=== PATIENT | female | born 1950 | race Caucasian/White ===

== ENCOUNTER 2021-09-27 07:50 | Day surgery (SDC) | payer MEDICARE, SELFPAY ==
--- NOTE | 2021-09-27 06:24 | W.ANESPRE ---
General Info Date of Service Date Performed: 09/27/21 Height: 5 ft 2 in Weight: 81.647 kg Body Mass Index (BMI): 32.9 Surgical Procedure: Operation Date: 09/27/21 09:55 Proposed Procedure Side Surgeon p Cataract Extraction with IOL Implant Right Cornelio Adkins MD Meds Allergies and Home Medications Allergies Allergy/AdvReac Type Severity Reaction Status Date / Time No Known Allergies Allergy Unverified 09/27/21 08:03 Home Medication Medication Instructions Recorded Unknown [No Known Home Meds] 09/26/21 [facility] Medical History Medical History Cataracts, bilateral Fatigue History of hypokalemia Tobacco Smoking/Tobacco Use Status: Former Tobacco Use Alcohol Alcohol Intake: current Alcohol intake frequency: a few times a week Substance Use Substance use: Never Substance use type: does not use Vital Signs and Lab Results Vital Signs Most Recent Vital Signs in EMR: Temp Pulse Resp BP Pulse Ox 37.1 C 81 16 152/104 H 98 09/27/21 08:00 09/27/21 08:00 09/27/21 08:00 09/27/21 08:00 09/27/21 08:00 Lab Results Blood Type / Crossmatch: No Data to Display Complete Blood Count: No Data to Display Complete Metabolic Panel: No Data to Display Liver Function Panel: No Data to Display Coagulation Panel: No Data to Display Cardiac Panel: No Data to Display Arterial Blood Gas: No Data to Display Venous Blood Gas: No Data to Display Pancreas Panel: No Data to Display Thyroid Panel: No Data to Display Infectious Disease: No Data to Display Blood Cultures: No Data to Display Toxicology Panel: No Data to Display Anesthesia Assessment and Plan Anesthesia History Personal History: Unknown Anesthesia History Family History: No Family History of Anesthesia Complications Exercise Tolerance Exercise Tolerance: Metabolic Equivalents>4 Cardiac & Pulmonary Exam Cardiac Exam: Normal S1/S2 Heart Sounds Pulmonary Exam: Clear Bilateral Breath Sounds Implantable Cardiac Device Does patient have a Pacemaker or an ICD?: No Airway Exam Known Difficult Airway: No Mallampati Class: 2 Mouth Opening: Normal (> 3cm) Thyromental Distance: Greater than 3 cm Neck Range of Motion: Full ROM Neck Circumference: Normal Teeth Condition: Generalized Poor Dentition and Removable Dentures/Plates Upper ASA Classification ASA Score: ASA 2 Emergency Case?: No NPO Status NPO Status: NPO Clears >2 hours, Solids >8 hours Anesthesia Plan Resuscitation Status: Full Code Anesthesia Technique: MAC Anesthesia Airway Planned: Natural Airway Monitors Used: Standard Monitors Preoperative Comments:: 71 yo female for cataract removal. Sig PMHx: hypokalemia, former smoker, occ EtOH.
[2021-09-27 08:00] VITALS: BP 152/104; PULSE 81; RESP 16; TEMP 37.1; O2SAT 98
[2021-09-27] MEDS: Tropicam./Phenyleph. (1/2.5%) 5 ML BTL ×3 (08:08→08:19)
[2021-09-27 08:27] VITALS: BMI 32.9
[2021-09-27] MEDS: Povidone-Iodine Ophth 30 ML BTL (09:21)
[2021-09-27] MEDS: Lidocaine 2% Jelly 6 ML SYR (09:22)
[2021-09-27] MEDS: Tetracaine 0.5% 4 ML BTL (09:22)
[2021-09-27] MEDS: Balanced Salt Soln.-PLUS 500 ML BAG (09:27)
[2021-09-27] MEDS: Duovisc Viscoelastic System EACH 1 EACH (09:27)
--- NOTE | 2021-09-27 09:48 | W.PM.DSUDISC ---
Discharge Plan Disposition Patient Disposition: HOME Condition: Good Discharge Details Attending Provider: Cornelio Adkins Primary Care Provider: None,None Home Meds and New Rx's Prescriptions: No Action No Known Home Meds Discharge Instructions Stand Alone Forms: Post-op Topical Cataract, Eugenia Waters (DSU) Discharge Orders Discharge Orders: Discharge Order (Routine); Ordered 09/27/21 Ordered By: Cornelio Adkins DS: Diagnosis Discharge Diagnosis (1) Cortical cataract of right eye: Status: Resolved (2) Nuclear sclerotic cataract of right eye: Status: Resolved (3) Posterior subcapsular age-related cataract, right eye: Status: Resolved
--- NOTE | 2021-09-27 09:50 | ROE_ITS ---
Date of service: 09/27/21 Time of Service: 08:50 Operative Note Operative Note DATE OF PROCEDURE: 09/27/21 PRE-OP DIAGNOSIS: Nuclear/cortical/posterior subcapsular cataract, right POST-OP DIAGNOSIS: same PROCEDURE: Cataract extraction using phacoemulsification with intraocular lens implant, right eye SURGEON: Cornelio Adkins ANESTHESIA TYPE: Local By Surgeon and MAC Refer to Anesthesia Record ESTIMATED BLOOD LOSS: 0 PATHOLOGY: none sent COMPLICATIONS: None Patient was transported to: same day Patient's condition: stable Implants: Juan Alberto [employer] Juan Alberto/AVEL Tecnis [id number] Indications: Progressive visual loss due to cataract, right eye Procedure Description: CATARACT SURGERY OPERATIVE REPORT PREOPERATIVE DIAGNOSIS: 1. Nuclear/cortical/posterior subcapsular cataract, right eye POSTOPERATIVE DIAGNOSIS: Same OPERATION: 1. Cataract extraction using phacoemulsification with posterior chamber intraocular lens implant, right eye. IOL: IOL Wash Worker/Model: Juan Alberto & Juan Alberto / AVEL Tecnis [id number] IOL Power: + 20.50 diopters IOL Serial Number: [id number] Optic Diameter: 6.0mm Haptic/Overall Diameter: 13.0mm PHACO INFO: Yovanny BrightBytesurion Vision System with OZil and Active Fluidics Cumulative Dispersed Energy (CDE): 6.30 seconds SURGEON: Cornelio Adkins MD, [place] ANESTHESIA: Monitored Anesthesia Care (MAC), with local sub-tenon's anesthetic infiltration COMPLICATIONS: None SPECIMENS: None INDICATIONS FOR PROCEDURE: The patient is a 71-year-old lady with history of diminished visual acuity in her right eye secondary to the development of nuclear/cortical/posterior subcapsular cataract. She is significantly symptomatic that she desires cataract surgery and attempt to improve and maximize her vision. The option of cataract surgery was offered to the patient and she wished to proceed PROCEDURE: The correct surgical eye was identified and marked as the right eye and the pupil was dilated in the preoperative area using mydriatics and cycloplegics. The dilated pupil size was seven-point mm. She elected to proceed without oral sedation the patient was brought to the operating room where cardiopulmonary monitoring was instituted and surgical time-out was performed, confirming the correct operative eye and IOL power. Topical anesthesia was administered and ophthalmic povidone-iodine 5% was instilled into the conjunctival fornices. Lidocaine gel was applied to the cornea and the pippa-ocular area was prepped with Betadine 10% solution and draped in the usual sterile fashion for intraocular surgery, including an aperture drape. A Tegaderm transparent film dressing was cut in half and used to cover the lashes and lid margins. Care was taken to sequester the lashes and lid margins under the Tegaderm dressing. A lid speculum was placed between the lids of the operative eye and the Yovanny LuxOR Revalia operating microscope was maneuvered into position. Keegan scissors were then used to make a conjunctival buttonhole approximately 6mm posterior to the limbus in the inferonasal quadrant. Blunt dissection was carried out to expose bare sclera, and a blunt-tipped sub-tenon?s anesthesia cannula was introduced and passed posteriorly along the globe where non- preserved plain lidocaine was injected into posterior sub-Tenon?s space. A sideport knife was used to make a paracentesis port inferotemporally. Intraocular phenylephrine/lidocaine was injected into the anterior chamber. The anterior chamber was filled with viscoelastic. A 2.4mm keratome knife was used to construct a 2-plane near-clear corneal tunnel extending 2.0mm into clear cornea superiortemporally. A flap was raised on the anterior capsule and capsulorhexis forceps were used to complete a continuous curvilinear capsulorhexis of 5.0 mm. Balanced salt solution was then used to perform cortical cleaving hydrodissec tion and nuclear hydrodelineation until the lens could be freely rotated within the capsular bag. The lens nucleus was then disassembled and removed within the capsular bag and iris plane using phacoemulsification. Residual cortical material was removed using the I/A handpiece. The posterior capsule was carefully polished to remove as much residual lens epithelial cells as safely possible. The capsular bag was then inflated and the anterior chamber deepened with viscoelastic. The lens implant described above was inserted into the capsular bag using the AVEL [place] Injector. A Kuglen hook was used to dial the IOL into position. Residual viscoelastic was then removed first from posterior to the IOL, then from the anterior chamber using the I/A handpiece. The lens implant was noted to center nicely within the capsular bag. The incisions were stromally hydrated, and the anterior chamber was reformed using BSS. Then 0.5cc of moxifloxacin 1.0mg/ml were injected into the capsular bag and anterior chamber. The incisions were checked with a Weck spear and found to be secure. Several drops of ophthalmic povidone-iodine 5% were then applied to the eye followed by two drops of Imprimis combination prednisolone/moxifloxacin/nepafenac solution. The drapes were removed and a clear plastic protective eye shield was placed over the eye. The patient was then returned to Same Day Surgery in stable condition.
[2021-09-27 09:51] VITALS: BP 148/79; PULSE 88; RESP 16; TEMP 36.6; O2SAT 97
--- NOTE | 2021-09-27 09:56 | W.ANESPOSTOP ---
Postoperative Evaluation Date, Time and Location Date Performed: 09/27/21 Time Performed: 08:56 Patient Location: Day Surgery Unit Vital Signs Most Recent Imported Vital Signs: Most Recent Vital Signs Temp Pulse Resp BP Pulse Ox 36.6 C 88 16 148/79 H 97 09/27/21 09:51 09/27/21 09:51 09/27/21 09:51 09/27/21 09:51 09/27/21 09:51 Pain Score Most Recent Pain Score: Most Recent Pain Score Pain Level 0 09/27/21 09:51 Assessment Mental Status: Awake (Alert & Oriented to Patient Baseline) Airway and Respiratory Function: Patent airway with normal (patient baseline) respiratory exam Cardiovascular Function: Hemodynamically Stable Hydration Status: Adequately Hydrated Nausea & Vomiting: No Nausea or Vomiting Pain: Pt. Denies Any Pain Peripheral Nerve Block: Patient did not receive a nerve block
== END 2021-09-27 10:03 | disposition home or self-care (01) ==
PROVIDERS: Visit Provider Ophthalmology
PROC: (CPT 66984; principal; 2021-09-27 09:45)
DX: H25.041 Posterior subcapsular polar age-related cataract, right eye (principal)
CPT/HCPCS: 66984; 00142; V2632

== ENCOUNTER 2021-10-11 06:21 | Day surgery (SDC) | payer MEDICARE, SELFPAY ==
--- OUTSIDE RECORDS SUMMARY | 2021-10-11 06:23 | XMS_ITS ---
:1950 Author Care Team Providers Name Role Phone KRISTEN HAN Primary Care Provider [phone] Allergies Code Code System Name Reaction Severity Status Onset NKDA ? Medications Name Status Start Date Stop Date ? ? cephalexin 500 mg capsule Completed ? 2021 Take 1 capsule 4 times a day by oral route for 7 days. folic acid 1 mg tablet Active ? Not avail able TAKE ONE TABLET BY MOUTH EVERY DAY FOR 90 DAYS hydrocodone 5 mg-acetaminophen 325 mg tablet Completed ? 09/12/2021 Take 1 tablet every 6 hours by oral route as needed for 3 days. Silvadene 1 % topical cream Completed ? 08/17 Apply 1 application twice a day by topical route as directed fo r 7 days. Vitamin B-12 1,000 mcg tablet Active ? No t available TAKE ONE TABLET BY MOUTH EVERY DAY FOR 90 DAYS Problems Name Status Onset Date Source ? Hypokalemia Active 09/14/2021 ? Fatigue Active 09/14/2021 ? Elevated Liver Enzymes Level Active 09/19/2021 ? Macrocytosis Active 09/23/2021 ? Procedures None recorded. Results Lab Results Date Name Specimen Result Interpretation Description Value Range Status Address ? 09/19/2021 Lipase, Serum S ? Lip 106 U/L 73-393 Final North or Plasma U/L [facility] L ab (Internal) : [address] 09/19/2021 TSH, Serum or S ? Tsh 1.48 uIU/mL 0.36-3.7 4 Final [place] Plasma uIU/mL [facility] L ab (Internal) : [address] 09/19/2021 Folate, Serum S Low Folate 2.30 NG/mL 8.60-58. 9 Final [place] 0 NG/mL [facility] L ab (Internal) : [address] 09/19/2021 Vitamin B12, S ? Vit B12 406.0 pg/mL 193.0-9 86 Final [place] Serum .0 pg/mL [facility] L ab (Internal) : [address] 09/19/2021 Hepatitis S ? Hepatitis negative negative Fi nal [place] Panel (A+B+C), a IgM Ab, S [facility] Acute, Serum Hosp ital Lab (Internal) : [address] ? ? S ? Hbs negative negative Final [place] Antigen, S [facility] L ab (Internal) : [address] ? ? S ? Hbc IgM negative negative Final Nort h Ab, S [facility] L ab (Internal) : [address] ? ? S ? HCV Ab, S negative negative Final No rth [facility] L [facility] (Internal) : [address] 09/19/2021 Venipuncture ? Location Right ? ? P_nc Primary Antecubital Care [place]: [address], [place] ? ? ? Needle 21g ? ? P_nc Prim mayelin Vacutainer Care [place]: [address], [place] ? ? ? Number of 1 ? ? P_nc P rimary Attempts Care [place]: [address], [place] ? ? ? Successful Yes ? ? P_nc Primary Care [place]: [address], [place] ? ? ? Dressing Pressure ? ? P_nc Primary Band-aid Care Applied [place]: [address], [place] ? ? ? Initials hj ? ? P_nc Pr imary Care [place]: [address], [place] 09/12/2021 CBC W/ Auto BLD ? Wbc 5.1 10*3/uL 5.0-10.0 F inal [place] Diff 10*3/uL [facility] L [facility] (Internal) : [address] ? ? BLD Low Rbc 3.76 10*6/uL 4.10-5.30 Final N orth 10*6/uL [facility] L [facility] (Internal) : [address] ? ? BLD ? Hgb 15.2 g/dL 12.0-16.0 Final Nort h g/dL [facility] L [facility] (Internal) : [address], [place] ? ? BLD ? Hct 43.9 % 37.0-47.0 Final [facility] Hospital L ab (Internal) : [address] ? ? BLD High Mcv 116.8 fL 80.0-96.0 Final [facility] Hospital L ab (Internal) : [address] ? ? BLD High Mch 40.4 pg 26.0-32.0 Final [facility] L ab (Internal) : [address] ? ? BLD ? Mchc 34.6 g/dL 31.0-35.0 [facility] L ab (Internal) : [address] ? ? BLD ? Rdw 13.3 % 11.5-14.[address] [facility] L ab (Internal) : [address] ? ? BLD ? Plt 293 10*3/uL 130-450 Final Nort h 10*3/uL [facility] L ab (Internal) : [address] ? ? BLD ? Anc 2.57 10*3/uL ? Final Nort [facility] L ab (Internal) : [address] ? ? BLD ? Nlr 1.50 0.00-3.20 Final [facility] L ab (Internal) : [address] ? ? BLD ? Neutro 50.2 % 40.0-75.[address] [facility] L ab (Internal) : [address] ? ? BLD ? Lymph 33.5 % 20.0-50.[address] [facility] L ab (Internal) : [address] ? ? BLD High [place] 10.6 % 2.0-10.0 Final [facility] Hospital L ab (Internal) : [address] ? ? BLD ? Eos 4.1 % 1.0-6.0 % Final [facility] L ab (Internal) : [address] ? ? BLD High Baso 1.4 % 0.0-1.0 % Final [facility] L ab (Internal) : [address] ? ? BLD ? Ig 0.2 % 0.0-0.9 % Final [facility] L ab (Internal) : [address] 09/12/2021 RBC BLD ? Macro large ? Final North Morphology, Count ry Blood Hospital L ab (Internal) : [address] 09/12/2021 Lipid Panel, S ? Chol 163 mg/dL 0-200 Maya l [place] Serum mg/dL [facility] L ab (Internal) : [address] ? ? S ? Trig 119 mg/dL 0-150 Final [place] mg/dL [facility] L ab (Internal) : [address] ? ? S ? Hdl 54 mg/dL 40-60 Final [place] mg/dL [facility] L ab (Internal) : [address] ? ? S ? Ldl 85 mg/dL 0-130 Final [place] mg/dL [facility] L ab (Internal) : [address] 09/12/2021 CMP, Serum or S ? g/r 98 mg/dL 74-106 Maya l [place] Plasma mg/dL [facility] L ab (Internal) : [address] ? ? S Low Bun 6 mg/dL 7-18 Final [place] mg/dL [facility] L ab (Internal) : [address] ? ? S ? Crea 0.6 mg/dL 0.6-1.0 Final [place] mg/dL [facility] L ab (Internal) : [address] ? ? S ? Ca 9.0 mg/dL 8.5-10.1 Final [place] mg/dL [facility] L ab (Internal) : [address] ? ? S ? Na 144 mmol/L 136-145 Final North mmol/L [facility] L ab (Internal) : [address] ? ? S Low K 3.3 mmol/L 3.5-5.1 Final [place] mmol/L [facility] L ab (Internal) : [address] ? ? S ? Cl 104 mmol/l 98-107 Final North mmol/l [facility] L ab (Internal) : [address] ? ? S ? Tco2 28.3 mmol/L 21.0-32.0 Final No rth mmol/L [facility] (Internal) : [address] ? ? S ? Tp 6.8 g/dL 6.4-8.2 Final North g/dL [facility] L ab (Internal) : [address] ? ? S Low Alb 2.9 g/dL 3.4-5.0 Final North g/dL [facility] L ab (Internal) : [address] ? ? S ? Tbil 0.80 mg/dL 0.20-1.00 Final Nor th mg/dL [facility] L ab (Internal) : [address] ? ? S ? Alp 77 U/L 46-116 Final North U/L [facility] L ab (Internal) : [address] ? ? S ? Alt (Sgpt) 46 U/L 14-59 U/L Final No rth [facility] L ab (Internal) : [address] ? ? S High Ast (Sgot) 96 U/L 15-37 U/L Final No rth [facility] L ab (Internal) : [address] 09/12/2021 ESR BLD ? Esr 0 mm/h 0-30 mm/h Final Nor th (Erythrocyte Coun try [facility] Lab Rate), Blood (Int ernal): [address] 09/12/2021 Venipuncture ? Location Right ? ? P_nc Primary Antecubital Care [place]: [address] [facility], [place] ? ? ? Needle 21g ? ? P_nc Prim mayelin Vacutainer Care [place]: [address] [facility], [place] ? ? ? Number of 1 ? ? P_nc P rimary Attempts Care [place]: [address] [facility], [place] ? ? ? Successful Yes ? ? P_nc Primary Care [place]: [address] [facility], [place] ? ? ? Dressing Pressure ? ? P_nc Primary Band-aid Care Applied [place]: [address] [facility], [place] ? ? ? Initials HJ ? ? P_nc Pr imary Care [place]: [address] [facility], [place] Past Encounters 09/19/2021 Elevated Liver Enzymes Level Kristen Han PA-C: [address] [place] [address], Ph. 09/12/2021 Pre-surgery Evaluation; Fatigue; Obesity Kristen Han PA-C: [address] [place] [address], Ph. Social History Tobacco Smoking Status Former Smoker Notes: quit 40 years ago Vaccine List Vaccine Type COVID-19, mRNA, LNP-S, PF, 100 mcg/0.5 m L dose (Moderna) 08/09/2020 09/06/2020 Td (adult), adsorbed 12/19/2019 Plan of Care Reminders Provider Appointments None recorded. ? ? Lab None recorded. ? ? Referral None recorded. ? ? Procedures None recorded. ? ? Surgeries None recorded. ? ? Imaging None recorded. ? ? Vitals 09/12/2021 09:00AM Preop Clearance 20 Weight Blood Pressure 81.76 kg 126/86 mm[Hg] 12/19/2019 08:20AM Follow Up 20 Height Weight BMI Blood Pressure 157.48 cm 80.29 kg 32.4 kg/m2 136/80 mm[Hg]
--- OUTSIDE RECORDS SUMMARY | 2021-10-11 06:23 | XMS_ITS | Encounter Summary ---
:1950 Author Care Team Providers Name Role Phone Kristen Han Primary Care Provider [phone] Reason for Visit lab follow-up Assessment and Plan 1. Elevated liver enzymes level ? venipuncture Discussion Note: None recorded.Patient educational handouts: No information available. Plan of Care Reminders Provider Appointments Any 15 on or around 12/24/2021 Nurse [facility] Lab Venipuncture 09/19/2021 P_nc Primary Ca re [place] Referral None recorded. ? ? Procedures None recorded. ? ? Surgeries None recorded. ? ? Imaging None recorded. ? ? Medications Name Start Date ? ? folic acid 1 mg tablet ? TAKE ONE TABLET BY MOUTH EVERY DAY FOR 90 DAYS Vitamin B-12 1,000 mcg tablet ? TAKE ONE TABLET BY MOUTH EVERY DAY FOR 90 DAYS Medications Administered None recorded. Vitals None recorded. Results Lab Results Date Name Specimen Result Interpretation Description Value Range Status Address ? 09/19/2021 Venipuncture ? Location Right ? ? P_nc Primary Care Antecubital [place]: [address], [place] ? ? ? Needle 21g Vacutainer ? ? P _nc Primary Care [place]: [address], [place] ? ? ? Number of 1 ? ? P_nc P rimary Care Attempts [place] [address], [place] ? ? ? Successful Yes ? ? P_nc Primary Care [place]: [address], [place] ? ? ? Dressing Pressure ? ? P_nc Primary Care Band-aid [place]: Applied [address], [place] ? ? ? Initials hj ? ? P_nc Pr imary Care [place]: [address], [place] Allergies Code Code System Name Reaction Severity Onset NKDA ? ? ? Problems Name Status Onset Date Source ? Hypokalemia Active 09/14/2021 ? Fatigue Active 09/14/2021 ? Elevated Liver Enzymes Level Active 09/19/2021 ? Macrocytosis Active 09/23/2021 ? Procedures None recorded. Vaccine List Vaccine Type COVID-19, mRNA, LNP-S, PF, 100 mcg/0.5 m L dose (Moderna) 08/09/2020 09/06/2020 Td (adult), adsorbed 12/19/2019 Social History Tobacco Smoking Status Former Smoker Notes: quit 40 years ago Do you have any pets? Y Do you have smoke and carbon monoxide Y detectors in your home? What is your code status? 0 Have you been to an area known to be N high risk for COVID-19? In the 14 days before symptom onset, N have you had close contact with a person who is under investigation for COVID-19 while that person was ill? What was the date of your most recent 09/12/2021 tobacco screening? Are you passively exposed to smoke? N What is your level of caffeine Occasional Notes: 1 cup of coffee and consumption? gingerale daily Have you recently traveled abroad? N Do you use any illicit or N recreational drugs? In the 14 days before symptom onset, N have you had close contact with a laboratory-confirmed COVID-19 while that case was ill? Functional Status Unknown. Past Encounters 09/19/2021 Elevated Liver Enzymes Level Kristen Han PA-C: [address] [place] [address], Ph. 09/12/2021 Pre-surgery Evaluation; Fatigue; Obesity Kristen Han PA-C: [address] [place] [address], Ph. History of Present Illness None recorded. Review of Systems None recorded. Physical Exam None recorded.
--- OUTSIDE RECORDS SUMMARY | 2021-10-11 06:23 | XMS_ITS | Encounter Summary ---
:1950 Author Care Team Providers Name Role Phone Kristen Han Primary Care Provider [phone] Reason for Visit pre-op check Assessment and Plan 1. Pre-surgery evaluation 09/12/2021 Recommend proceed with this l ow-risk surgery in this low-risk patient. 2. Fatigue 09/12/2021 Recurrent problem. We will lo ok at labs.: macrocytosis, low protein serum, mild hypokalemia. ? CBC w/ auto diff ? ESR (erythrocyte sedimentation rate), blood ? CMP, serum or plasma - another diagno sis: obesity: at risk for liver disease and hyperglycemia. ? venipuncture 3. Obesity 09/12/2021 Discussed her weight. We will look at her lipid panel. ? lipid panel, serum - nonfasting: had some gingerale. Discussion Note: None recorded.Patient educational handouts: No information available. Plan of Care Reminders Provider Appointments Any 15 on or around Nurse Pcbo 12/24/2021 Lab CBC W/ Auto Diff 09/12/2021 [facility] Lab (Internal) ? ESR (Erythrocyte 09/12/2021 [facility] Sedimentation Rate), [facility] (Internal) ? CMP, Serum or Plasma 09/12/2021 [facility] Lab (Internal) ? Lipid Panel, Serum 09/12/2021 [facility] Lab (Internal) ? Venipuncture 09/12/2021 P[facility]nc Primary Ca re [place] Referral None recorded. ? ? Procedures None recorded. ? ? Surgeries None recorded. ? ? Imaging None recorded. ? ? Medications Name Start Date ? ? folic acid 1 mg tablet ? TAKE ONE TABLET BY MOUTH EVERY DAY FOR 90 DAYS Vitamin B-12 1,000 mcg tablet ? TAKE ONE TABLET BY MOUTH EVERY DAY FOR 90 DAYS Medications Administered None recorded. Vitals Weight Blood Pressure 180 lbs 4 oz 126/86 mm[Hg] Results Lab Results Date Name Specimen Result Interpretation Description Value Range Status Address ? 09/12/2021 CBC W/ Auto BLD ? Wbc 5.1 10*3/uL 5.0-10.0 F [place] Diff 10*3/uL [facility] (Internal) : [address] ? ? BLD Low Rbc 3.76 10*6/uL 4.10-5.30 Final N orth 10*6/uL [facility] (Internal) : [address] ? ? BLD ? Hgb 15.2 g/dL 12.0-16.0 Final Nort h g/dL [facility] (Internal) : [address] ? ? BLD ? Hct 43.9 % 37.0-47.0 Final [facility] (Internal) : [address] ? ? BLD High Mcv 116.8 fL 80.0-96.0 Final [facility] (Internal) : [address] ? ? BLD High Mch 40.4 pg 26.0-32.0 Final [facility] (Internal) : [address] ? ? BLD ? Mchc 34.6 g/dL 31.0-35.0 Final Nort h g/dL [facility] (Internal) : [address] ? ? BLD ? Rdw 13.3 % 11.5-14.5 Final [facility] (Internal) : [address] ? ? BLD ? Plt 293 10*3/uL 130-450 Final Nort h 10*3/uL [facility] (Internal) : [address] ? ? BLD ? Anc 2.57 10*3/uL ? Final Nort h [facility] (Internal) : [address] ? ? BLD ? Nlr 1.50 0.00-3.20 Final [facility] (Internal) : [address] ? ? BLD ? Neutro 50.2 % 40.0-75.0 Final [facility] (Internal) : [address] ? ? BLD ? Lymph 33.5 % 20.0-50.0 Final [facility] ([facility] : [address] ? ? BLD High [place] 10.6 % 2.0-10.0 Final [facility] (Internal) : [address] ? ? BLD ? Eos 4.1 % 1.0-6.0 % Final [facility] (Internal) : [address] ? ? BLD High Baso 1.4 % 0.0-1.0 % Final [facility] (Internal) : [address] ? ? BLD ? Ig 0.2 % 0.0-0.9 % Final [facility] (Internal) : [address] 09/12/2021 Lipid Panel, S ? Chol 163 mg/dL 0-200 Maya [facility] [place] Serum mg/dL [facility] ([facility]) : [address] ? ? S ? Trig 119 mg/dL 0-150 Final [place] mg/dL [facility] (Internal) : [address] ? ? S ? Hdl 54 mg/dL 40-60 Final [place] mg/dL [facility] (Internal) : [address] ? ? S ? Ldl 85 mg/dL 0-130 Final [place] mg/dL [facility] (Internal) : [address] 09/12/2021 CMP, Serum or S ? g/r 98 mg/dL 74-106 Maya l [place] Plasma mg/dL [facility] (Internal) : [address] ? ? S Low Bun 6 mg/dL 7-18 Final [place] mg/dL [facility] (Internal) : [address] ? ? S ? Crea 0.6 mg/dL 0.6-1.0 Final [place] mg/dL [facility] (Internal) : [address] ? ? S ? Ca 9.0 mg/dL 8.5-10.1 Final [place] mg/dL [facility] (Internal) : [address] ? ? S ? Na 144 mmol/L 136-145 Final [place] mmol/L [facility] (Internal) : [address] ? ? S Low K 3.3 mmol/L 3.5-5.1 Final [place] mmol/L [facility] (Internal) : [address] ? ? S ? Cl 104 mmol/l 98-107 Final [place] mmol/l [facility] (Internal) : [address] ? ? S ? Tco2 28.3 mmol/L 21.0-32.0 Final No rth mmol/L [facility] (Internal) : [address] ? ? S ? Tp 6.8 g/dL 6.4-8.2 Final [place] g/dL [facility] (Internal) : [address] ? ? S Low Alb 2.9 g/dL 3.4-5.0 Final [place] g/dL [facility] (Internal) : [address] ? ? S ? Tbil 0.80 mg/dL 0.20-1.00 Final Nor th mg/dL [facility] (Internal) : [address] ? ? S ? Alp 77 U/L 46-116 Final [place] U/L [facility] (Internal) : [address] ? ? S ? Alt (Sgpt) 46 U/L 14-59 U/L Final No rth [facility] (Internal) : [address] ? ? S High Ast (Sgot) 96 U/L 15-37 U/L Final No rth [facility] (Internal) : [address] 09/12/2021 ESR BLD ? Esr 0 mm/h 0-30 mm/h Final Nor th (Erythrocyte [facility] Rate), Blood (Int ernal): [address] 09/12/2021 Venipuncture ? Location Right ? [...] [address], [place] ? ? ? Initials [place] ? ? P[facility]nc Pr imary Care [place]: [address], [place] Allergies Code Code System Name Reaction Severity [...] was ill? Functional Status Unknown. Past Encounters 09/12/2021 Pre-surgery Evaluation; Fatigue; Obesity Kristen Han PA-C: [address] [place] [address], Ph. History of Present Illness Note: <div>09/12/21: patient here for per-op clearance: cataract surgery to the right eye on 09/27/21by </div><div>Dr. Foster. Patient states the left eye cataract surgery with be done 2 weeks after on 10/11/21. </div> Review of Systems ? Comprehensive General Adult ROS Reported By: Patient Constitutional: Constitutional: no fever, no night sweats, no significant weight gain, no significant weight loss, no exercise intolerance, no chills, no malaise Musculoskeletal: Musculoskeletal: arthralgias /joint pain, swelling in the extremities, difficulty walk ing; Right knee gives out on her at times. Stairs are very diffi cult Integumentary: Skin: ; History of tanning b ed use Psychiatric: Psych: ; Non-smoker. Rare al cohol use. In the summer, she uses her pool and she gardens so her mood is better. She doesn't get much exercise during the winter Physical Exam ? Brief PE Reported By: Patient General: General Appearance: healthy- appearing, well-developed, overweight. Level of Distress: NAD Eyes, Ears, Nose, Mouth, Throat: Eyes PERRLA, extraocu lar movements intact, no pallor. Ears: no lesions on external right ear, no lesions on external left ear , no hearing loss right ear, no hearing loss left ea r. Lips, Teeth, and Gums: no mouth or lip ulcers . Oropharynx: moist mucous membranes. Nose: no l esions on external nose, nares patent, no nasal disch arge Neck: Neck: supple, FROM Cardiovascular: Heart Auscultation: RRR, nor mal S1, normal S2, no murmurs. Extremities: edema Lungs: Auscultation: clear, no whee zing, no rales/crackles, no rhonchi Abdomen: Inspection and Palpation: so ft, non-distended, non-tender, no masses; weigh t = 180 pounds. BMI = 32 Neurological: Orientation: to time, to alyson ce, to person. Motor Strength and Tone: normal mo tor strength, normal tone. Sensation normal sensa tion. Reflexes normal reflexes Skin: Inspection and palpation: wa rm and dry, good turgor, lesion Psychiatric: Affect appropriate Notes: <div>Labs: macrocytosis. Mil d hypokalemia. AST was slightly elevated. Total pro tein is low at 2.9. Lipids excellent. Kidneys: c reat = 0.6 BP = 126/86</div>
[2021-10-11 06:29] VITALS: BP 170/84; PULSE 96; RESP 16; TEMP 36.5; O2SAT 98
[2021-10-11] MEDS: Tropicam./Phenyleph. (1/2.5%) 5 ML BTL OS ×3 (06:39→06:49)
--- NOTE | 2021-10-11 07:01 | W.ANESPRE ---
General Info Date of Service Date Performed: 10/11/21 Height: 5 ft 2 in Weight: 80 kg Body Mass Index (BMI): 32.2 Surgical Procedure: Operation Date: 10/11/21 07:40 Proposed Procedure Side Surgeon p Cataract Extraction with IOL Implant Left Cornelio Adkins MD Meds Allergies and Home Medications Allergies Allergy/AdvReac Type Severity Reaction Status Date / Time No Known Allergies Allergy Unverified 09/27/21 08:03 Home Medication Medication Instructions Recorded Unknown [No Known Home Meds] 09/26/21 Current Visit Medications: Current Medications Generic Name Dose Route Start Last Admin Trade Name Freq PRN Reason Stop Dose Admin Acetaminophen 1,000 mg 10/11/21 06:00 Acetaminophen 500 Mg Tab PO 10/11/21 16:00 Q4H PRN PRN Miscellaneous Medication 0 ml 10/11/21 06:00 Prednisolone 1%, Moxifloxacin 0.5%, Nepafenac 0.1% 5ml Btl OS 10/11/21 16:00 DIRECTED JANIS Miscellaneous Medication 0 ml 10/11/21 06:00 10/11/21 06:49 Tropicam./Phenyleph. (1/2.5%) 5 Ml Btl OS 10/11/21 16:00 1 drp DIRECTED JANIS Administration Tetracaine HCl 0 ml 10/11/21 06:00 Tetracaine 0.5% 4 Ml Btl OS 10/11/21 16:00 DIRECTED JANIS PFSH Active Problems Active Problems: Problem Status Onset Code Posterior subcapsular age-related cataract, right eye H25.041 Nuclear sclerotic cataract of right eye H25.11 Cortical cataract of right eye H26.9 Medical History Medical History Cataracts, bilateral Fatigue History of hypokalemia Tobacco Smoking/Tobacco Use Status: Former Tobacco Use Alcohol Alcohol Intake: current Alcohol intake frequency: a few times a week Substance Use Substance use: Never Substance use type: does not use Vital Signs and Lab Results Vital Signs Most Recent Vital Signs in EMR: Most Recent Vital Signs Temp Pulse Resp BP Pulse Ox 36.5 C 96 H 16 170/84 H 98 10/11/21 06:29 10/11/21 06:29 10/11/21 06:29 10/11/21 06:10/11/21 06:29 Lab Results Blood Type / Crossmatch: No Data to Display Complete Blood Count: No Data to Display Complete Metabolic Panel: No Data to Display Liver Function Panel: No Data to Display Coagulation Panel: No Data to Display Cardiac Panel: No Data to Display Arterial Blood Gas: No Data to Display Venous Blood Gas: No Data to Display Pancreas Panel: No Data to Display Thyroid Panel: No Data to Display Infectious Disease: No Data to Display Blood Cultures: No Data to Display Toxicology Panel: No Data to Display Anesthesia Assessment and Plan Anesthesia History Personal History: No History of Anesthesia Complications Family History: No Family History of Anesthesia Complications Exercise Tolerance Exercise Tolerance: Metabolic Equivalents>4 Pertinent Negatives Pertinent Negatives: No Symptoms of GERD, No Major Cardiovascular Symptoms or Complaints, No Major Pulmonary Symptoms or Complaints and No History of CVA/TIA Cardiac & Pulmonary Exam Cardiac Exam: Normal S1/S2 Heart Sounds Pulmonary Exam: Clear Bilateral Breath Sounds Implantable Cardiac Device Does patient have a Pacemaker or an ICD?: No Airway Exam Known Difficult Airway: No Mallampati Class: 2 Mouth Opening: Normal (> 3cm) Thyromental Distance: Greater than 3 cm Neck Range of Motion: Full ROM Neck Circumference: Normal Teeth Condition: Generalized Poor Dentition and Removable Dentures/Plates Upper ASA Classification ASA Score: ASA 2 Emergency Case?: No NPO Status NPO Status: NPO Clears >2 hours, Solids >8 hours Anesthesia Plan Resuscitation Status: Full Code Anesthesia Technique: MAC Anesthesia Airway Planned: Natural Airway Monitors Used: Standard Monitors
[2021-10-11 07:02] VITALS: BMI 32.2
[2021-10-11] MEDS: Balanced Salt Soln.-PLUS 500 ML BAG (07:29)
[2021-10-11] MEDS: Duovisc Viscoelastic System EACH 1 EACH (07:30)
[2021-10-11] MEDS: Lidocaine 2% Jelly 6 ML SYR (07:30)
[2021-10-11] MEDS: Povidone-Iodine Ophth 30 ML BTL (07:31)
[2021-10-11] MEDS: Tetracaine 0.5% 4 ML BTL OS (07:32)
[2021-10-11 07:50] VITALS: BP 151/95; PULSE 84; RESP 16; TEMP 36.6; O2SAT 96
--- NOTE | 2021-10-11 07:52 | W.ANESPOSTOP ---
Postoperative Evaluation Date, Time and Location Date Performed: 10/11/21 Time Performed: 07:52 Patient Location: Day Surgery Unit Vital Signs Most Recent Imported Vital Signs: Most Recent Vital Signs Temp Pulse Resp BP Pulse Ox 36.5 C 96 H 16 170/84 H 98 10/11/21 06:29 10/11/21 06:29 10/11/21 06:29 10/11/21 06:29 10/11/21 06:29 Most Recent Manually Entered Vital Signs: Adult Blood Pressure: 151/94 Heart Rate: 89 Respirations: 12 Oxygen Saturation (%): 96 Temperature (C): 36.3 C Pain Score (0-10 Scale): 0 Pain Score Most Recent Pain Score: Most Recent Pain Score Pain Level 0 10/11/21 06:29 Assessment Mental Status: Awake (Alert & Oriented to Patient Baseline) Airway and Respiratory Function: Patent airway with normal (patient baseline) respiratory exam Cardiovascular Function: Hemodynamically Stable Hydration Status: Adequately Hydrated Nausea & Vomiting: No Nausea or Vomiting Pain: Pt. Denies Any Pain Peripheral Nerve Block: Patient did not receive a nerve block
--- NOTE | 2021-10-11 07:52 | W.PM.DSUDISC ---
Discharge Plan Disposition Patient Disposition: HOME Condition: Good Discharge Details Attending Provider: Cornelio Adkins Primary Care Provider: None,None Home Meds and New Rx's Prescriptions: No Action No Known Home Meds Discharge Instructions Stand Alone Forms: Post-op Topical Cataract, Eugenia Waters (DSU) Discharge Orders Discharge Orders: Discharge Order (Routine); Ordered 10/11/21 Ordered By: Cornelio Adkins DS: Diagnosis Discharge Diagnosis (1) Cortical cataract of left eye: Status: Resolved (2) Posterior subcapsular age-related cataract of left eye: Status: Resolved (3) Nuclear sclerotic cataract of left eye: Status: Resolved
[2021-10-11 07:53] VITALS: BP 151/94; PULSE 89; RESP 12; TEMPC 36.3; O2SAT 96
--- NOTE | 2021-10-11 07:55 | W.PM.OP ---
Date of service: 10/11/21 Time of Service: 06:55 Operative Note Operative Note DATE OF PROCEDURE: 10/11/21 PRE-OP DIAGNOSIS: Nuclear/cortical/posterior subcapsular cataract, left eye POST-OP DIAGNOSIS: same PROCEDURE: Cataract extraction using phacoemulsification with intraocular lens implant, left eye SURGEON: Cornelio Adkins ANESTHESIA TYPE: Local By Surgeon and MAC Refer to Anesthesia Record PATHOLOGY: none sent COMPLICATIONS: None Patient was transported to: same day Patient's condition: stable Implants: Juan Alberto and Juan Alberto / [employer] Tecnis [id number] Indications: Progressive decreased vision due to cataract, left eye Procedure Description: CATARACT SURGERY OPERATIVE REPORT PREOPERATIVE DIAGNOSIS: 1. Nuclear/cortical/posterior subcapsular cataract, left eye POSTOPERATIVE DIAGNOSIS: Same OPERATION: 1. Cataract extraction using phacoemulsification with posterior chamber intraocular lens implant, left eye. IOL: IOL Handle Bar Assembler/Model: Juan Alberto & Juan Alberto / AVEL Tecnis [id number] IOL Power: + 21.0 diopters IOL Serial Number: [id number] Optic Diameter: 6.0 mm Haptic/Overall Diameter: 13.0 mm PHACO INFO: Yovanny Stop Being Watchedurion Vision System with OZil and [employer] Cumulative Dispersed Energy (CDE): 8.54 seconds SURGEON: Cornelio Adkins MD, [place] ANESTHESIA: Monitored A [facility] (MAC), with local sub-tenon's anesthetic infiltration COMPLICATIONS: None SPECIMENS: None INDICATIONS FOR PROCEDURE: The patient is a 71-year-old lady with history of diminished visual acuity in both eyes secondary to the development of bilateral nuclear/cortical/posterior subcapsular cataract. She has already undergone cataract surgery in the right eye and is doing well postoperatively. She now presents for cataract surgery in the left eye. PROCEDURE: The correct surgical eye was identified and marked as the left eye and the pupil was dilated in the preoperative area using mydriatics and cycloplegics. The dilated pupil size was 7.0 mm. She elected to proceed without oral sedation.. The patient was brought to the operating room where cardiopulmonary monitoring was instituted and surgical time-out was performed, confirming the correct operative eye and IOL power. Topical anesthesia was administered and ophthalmic povidone-iodine 5% was instilled into the conjunctival fornices. Lidocaine gel was applied to the cornea and the pippa-ocular area was prepped with Betadine 10% solution and draped in the usual sterile fashion for intraocular surgery, including an aperture drape. A Tegaderm transparent film dressing was cut in half and used to cover the lashes and lid margins. Care was taken to sequester the lashes and lid margins under the Tegaderm dressing. A lid speculum was placed between the lids of the operative eye and the Yovanny LuxOR Revalia operating microscope was maneuvered into position. Keegan scissors were then used to make a conjunctival buttonhole approximately 6mm posterior to the limbus in the inferonasal quadrant. Blunt dissection was carried out to expose bare sclera, and a blunt-tipped sub-tenon?s anesthesia cannula was introduced and passed posteriorly along the globe where non-preserved plain lidocaine was injected into posterior sub-Tenon?s space. A sideport knife was used to make a paracentesis port superiorly/superiortemporally. Intraocular phenylephrine/lidocaine was injected int the anterior chamber.. The anterior chamber was filled with viscoelastic. A 2.4mm keratome knife was used to construct a 2-plane near-clear corneal tunnel extending 2.0mm into clear cornea temporally. A flap was raised on the anterior capsule and capsulorhexis forceps were used to complete a continuous curvilinear capsulorhexis of 5.0 mm. Balanced salt solution was then used to perform cortical cleaving hydrodissection and nuclear hydrodelineation until the lens could be freely rotated within the capsular bag. The lens nucleus was then disassembled and removed within the capsular bag and iris plane using phacoemulsification. Residual cortical material was removed using the 45-degree angled silicone I/A tip with 0.3mm port. The posterior capsule was carefully polished to remove as much residual lens epithelial cells as safely possible. The capsular bag was then inflated and the anterior chamber deepened with viscoelastic. The lens implant described above was inserted into the capsular bag using the AVEL [place] Injector. A Kuglen hook was used to dial the IOL into position. Residual viscoelastic was then removed first from posterior to the IOL, then from the anterior chamber using the I/A handpiece. The lens implant was noted to center nicely within the capsular bag. The incisions were stromally hydrated, and the anterior chamber was reformed using BSS. Then 0.5cc of moxifloxacin 1.0mg/ml were injected into the capsular bag and anterior chamber. The incisions were checked with a Weck spear and found to be secure. Several drops of ophthalmic povidone-iodine 5% were then applied to the eye followed by two drops of Imprimis combination prednisolone/moxifloxacin/nepafenac solution. The drapes were removed and a clear plastic protective eye shield was placed over the eye. The patient was then returned to Same Day Surgery in stable condition.
== END 2021-10-11 08:05 | disposition home or self-care (01) ==
PROVIDERS: Visit Provider Ophthalmology
PROC: (CPT 66984; principal; 2021-10-11 07:30)
DX: H25.042 Posterior subcapsular polar age-related cataract, left eye (principal)
CPT/HCPCS: 66984; V2632

== ENCOUNTER 2025-01-04 17:07 | Outpatient (CLI) | payer MEDICARE, SELFPAY ==
[2025-01-04 15:48] LABS: Abs Immature Grans 0.03 10^3/uL (0.0-0.06); HCT 44.6 % (36.0-46.0); HGB 14.7 g/dL (11.2-15.7); Immature Grans % 0.3 %; MCH 31.5 pg (27.0-33.0); MCHC 33.0 % (32.0-36.0); MCV 96 fL (80-95); MPV 10.8 fL (8.0-11.0); Platelet Count 256 10^3/uL (130-400); RBC 4.67 10^6/uL (3.93-5.22); RDW 12.6 % (11.7-14.6); RDW-SD 43.9 fL; WBC 9.29 10^3/uL (4.4-10.8)
[2025-01-04 16:09] LABS: ALT 24 U/L (14-59); AST 23 U/L (15-37); Albumin 4.0 g/dL (3.4-5.0); Alkaline Phosphatase 106 U/L (46-116); Anion Gap 11.1 mmol/L (3-11); BUN 16 mg/dL (7-18); Bilirubin, Total 1.0 mg/dL (0.2-1.0); CO2 27.9 mmol/L (21.0-32.0); Calcium 9.9 mg/dL (8.5-10.1); Chloride 102 mmol/L (98-107); Estimated GFR 94.72 (mL/min/1.73m2); Glucose 94 mg/dL (74-106); Potassium 4.0 mmol/L (3.5-5.1); Sodium 141 mmol/L (136-145); Total Protein 7.8 g/dL (6.4-8.2)
[2025-01-05 17:28] LABS: Total Protein 7.5 g/dL (6.3-8.2)
[2025-01-06 09:17] LABS: Kappa Free Light Chain 2.01 mg/dL (0.33-1.94); Lambda Free Light Chain 1.80 mg/dL (0.57-2.63)
[2025-01-06 12:53] LABS: Albumin 57.8 % (55.8-66.1); Albumin g/dL 4.3 g/dL (3.6-5.2); Alpha 1 g/dL 0.30 g/dL (0.15-0.40); Alpha 2 g/dL 0.70 g/dL (0.50-1.00); Beta g/dL 1.00 g/dL (0.60-1.20); Gamma g/dL 1.20 g/dL (0.60-1.60)
== END 2025-01-04 17:08 | disposition home or self-care (01) ==
LOC: LBO 17:07
PROVIDERS: Visit Provider Internal Medicine Hematology & Oncology
DX: D47.2 Monoclonal gammopathy (principal)
CPT/HCPCS: 36415; 80053; 82784; 83883; 84165; 85025

== ENCOUNTER 2025-03-13 03:33 | Outpatient (CLI) | payer MEDICARE, SELFPAY ==
--- NOTE | 2025-03-13 | DI.US_ITS ---
Exam(s) US ABDOMEN EXAM: US ABDOMEN CLINICAL HISTORY: K70.30 Alcoholic cirrhosis of liver w/o ascites TECHNIQUE: Ultrasound abdomen performed using standard protocol. COMPARISON: No exams were available for comparison FINDINGS: ABDOMINAL AORTA AND IVC: Visualized portions normal caliber. PANCREAS: Normal where visualized. LIVER: There is heterogeneous echogenicity of the liver. The liver has a nodular contour. Hepatopetal flow in the Portal Vein. No evidence of a hepatic mass. The liver measures 15.2cm long. GALLBLADDER:There are mobile gallstones present. There are findings suggestive of adenomyomatosis. No evidence of wall thickening. No pericholecystic fluid identified. BILIARY SYSTEM: Common bile duct measures < 7 mm. No intrahepatic biliary ductal dilation. BRUNO'S SIGN: Negative. KIDNEYS: Kidneys are symmetric in size. No evidence of renal calculi. No evidence of hydronephrosis. No renal mass or cyst identified. SPLEEN: Not enlarged. ASCITES: None seen. IMPRESSION: 1. Nodular liver with heterogeneous echogenicity suggestive of hepatic cirrhosis. 2. Cholelithiasis without ultrasound evidence of acute cholecystitis. DATA REPOSITORY:
== END 2025-03-13 03:53 ==
PROVIDERS: Visit Provider Internal Medicine Gastroenterology
DX: K70.30 Alcoholic cirrhosis of liver without ascites (principal)
CPT/HCPCS: 76700